=== PATIENT | female | born 1990 | race Caucasian/White ===

== ENCOUNTER 2017-06-10 13:52 | Emergency (ER) | payer MEDICAID, OTHER ==
[~2017-06-10] VITALS: Ht 170.2 cm; Wt 70.0 kg
[~2017-06-10 13:52] MED LIST: BENADRYL
[2017-06-10] MEDS ORDERED: CEPH250C2 PO (14:05)
[2017-06-10] MEDS ORDERED: PREDNISONE 20MG TABLET PO ONE (15:00)
[2017-06-10] MEDS ORDERED: KETOROLAC 60MG/2ML VIAL IM ONE (15:00)
[2017-06-10] MEDS ORDERED: ACETAMINOPHEN 325MG TABLET PO ONE (16:30)
[2017-06-10 17:15] VITALS: BP 127/63
== END 2017-06-10 17:26 | disposition home or self-care (01) ==
LOC: ER 14:56
DX: J03.90 Acute tonsillitis, unspecified (principal); R51 Headache; H92.09 Otalgia, unspecified ear; Z88.8 Allergy status to other drugs, medicaments and biological substances; Z91.011 Allergy to milk products; Z91.010 Allergy to peanuts; F17.210 Nicotine dependence, cigarettes, uncomplicated
CPT/HCPCS: 81025; 87070; 87430; 96372; 99284; J1885; J7512

== ENCOUNTER 2024-07-27 06:32 | Emergency (ER) | payer OTHER ==
[~2024-07-27] VITALS: Ht 170.2 cm; Wt 93.0 kg
[~2024-07-27 06:32] MED LIST changes: +CEPH250C2 PO
[2024-07-27 06:51] VITALS: TEMP 98.2; O2SAT 100
[2024-07-27 06:52] VITALS: O2SAT 100
[2024-07-27 09:17] VITALS: BP 171/104; PULSE 75; RESP 15
[2024-07-27] MEDS: IBUPROFEN 600MG TABLET PO ONE (09:17)
[2024-07-27] MEDS ORDERED: IBUP-2029 MT (09:21)
== END 2024-07-27 10:15 | disposition home or self-care (01) ==
LOC: ER 06:41
DX: S43.401A Unspecified sprain of right shoulder joint, initial encounter (principal); S83.92XA Sprain of unspecified site of left knee, initial encounter; Z90.89 Acquired absence of other organs; Z98.890 Other specified postprocedural states; Z91.011 Allergy to milk products; X58.XXXA Exposure to other specified factors, initial encounter; Y93.89 Activity, other specified; Y92.89 Other specified places as the place of occurrence of the external cause; Y99.8 Other external cause status
CPT/HCPCS: 73030; 73564; 99284